=== PATIENT | female | born 1990 | race African-American/Black ===

== ENCOUNTER 2018-11-20 19:04 | Emergency (ER) | payer OTHER ==
[~2018-11-20] VITALS: Ht 162.6 cm; Wt 81.7 kg
[~2018-11-20 19:04] MED LIST: BACTRIM DS TAB1 EACH PO; CAVAN-FOLATE D1 EACH PO; CLEOCIN HCL300 MG PO; CLOTRIMAZOLE 1%15 G1 TOP; IBUPROFEN 800800 M1 PO; IRON; LANOLIN56 GM; NORCO 5-325 TA1 EACH PO; PROPRANOLOL 1010 MG PO
[2018-11-20 20:32] LABS: URINE BILIRUBIN 1+ (Negative); URINE BLOOD 3+ (Negative); URINE CLARITY CLOUDY; URINE COLOR RED; URINE GLUCOSE-RANDOM* NEGATIVE (Negative); URINE KETONES 3+ (Negative); URINE LEUKOCYTES-REFLEX TRACE (Negative); URINE NITRITE-REFLEX POSITIVE (Negative); URINE PROTEIN (DIPSTICK) 2+ (Negative); URINE SPECIFIC GRAVITY >= 1.030 (1.005-1.035)
[2018-11-20 20:44] LABS: CASTS None Seen /LPF (None Seen); CRYSTALS None Seen /LPF (None Seen); MUCUS 0-3 Light strn/LPF (None Seen); SQUAMOUS 0-3 Few /LPF (0-3); URINE RBC >20 Many /HPF (0-2); URINE WBC-REFLEX 0-5 Rare /HPF (0-5)
[2018-11-20] MEDS ORDERED: NORCO 5-325 TA1 EACH PO (21:16)
[2018-11-20] MEDS ORDERED: BACTRIM DS TAB1 EACH PO (21:16)
[2018-11-20 21:25] VITALS: BP 133/80
== END 2018-11-20 21:20 | disposition home or self-care (01) ==
LOC: ER 19:04
PROVIDERS: Physician Assistant
DX: N75.1 Abscess of Bartholin's gland (principal); Z98.890 Other specified postprocedural states

== ENCOUNTER 2019-03-21 09:07 | Emergency (ER) | payer OTHER ==
[~2019-03-21] VITALS: Ht 162.6 cm; Wt 88.9 kg
[2019-03-21] MEDS ORDERED: CEFIXIME400 MG PO (11:55)
[2019-03-21] MEDS ORDERED: CLEOCIN HCL150 MG PO (11:55)
[2019-03-21 12:07] VITALS: BP 119/63
== END 2019-03-21 12:08 | disposition home or self-care (01) ==
LOC: ER 09:07
DX: N75.1 Abscess of Bartholin's gland (principal); Z98.890 Other specified postprocedural states

== ENCOUNTER 2019-07-16 13:11 | Emergency (ER) | payer OTHER ==
[~2019-07-16] VITALS: Ht 162.6 cm; Wt 86.2 kg
[~2019-07-16 13:11] MED LIST changes: +CEFIXIME400 MG PO; +CLEOCIN HCL150 MG PO
[2019-07-16] MEDS ORDERED: NORCO 5-325 TA1 EAC1 PO (16:08)
[2019-07-16] MEDS ORDERED: IBUPROFEN 600600 M1 PO (16:08)
[2019-07-16] MEDS ORDERED: TOPAMAX100 MG PO ×2 (16:22→16:23)
[2019-07-16 16:24] VITALS: BP 120/77
== END 2019-07-16 16:26 | disposition home or self-care (01) ==
LOC: ER 13:11
DX: N75.1 Abscess of Bartholin's gland (principal); Z79.899 Other long term (current) drug therapy; Z98.890 Other specified postprocedural states

== ENCOUNTER 2019-11-19 11:34 | Emergency (ER) | payer OTHER ==
[~2019-11-19] VITALS: Ht 162.6 cm; Wt 89.8 kg
[~2019-11-19 11:34] MED LIST changes: +IBUPROFEN 600600 M1 PO; +NORCO 5-325 TA1 EAC1 PO; +TOPAMAX100 MG PO
[2019-11-19] MEDS ORDERED: PROPRANOLOL 20M20 M1 PO (11:38)
[2019-11-19 13:03] VITALS: BP 121/80
== END 2019-11-19 13:07 | disposition home or self-care (01) ==
LOC: ER 11:34
DX: N75.0 Cyst of Bartholin's gland (principal); Z79.899 Other long term (current) drug therapy

== ENCOUNTER 2020-03-18 21:58 | Emergency (ER) | payer OTHER ==
[~2020-03-18] VITALS: Ht 162.6 cm; Wt 90.7 kg
[~2020-03-18 21:58] MED LIST changes: +PROPRANOLOL 20M20 M1 PO
[2020-03-18 22:54] VITALS: BP 121/77
== END 2020-03-18 22:55 | disposition home or self-care (01) ==
LOC: ER 21:58
DX: U07.1 COVID-19 (principal); R50.9 Fever, unspecified